=== PATIENT | female | born 1945 ===

== ENCOUNTER 2022-07-18 05:46 | Observation (INO) ==
[~2022-07-18 05:46] MED LIST: HYDROmorphone 1 MG/1 ML SYRINGE IV PRN; Naloxone 0.4 mg VIAL 0.4 mg/ml 1 ml VIAL IV PRN; Ondansetron 4 mg VIAL 2 MG/ML 2 ml VIAL IV PRN; fentaNYL 100 mcg/2 ml 50 MCG/ML VIAL IV PRN
[2022-07-18] MEDS ORDERED: Buffered Lidocaine 1% SYRIN 1 ml INTRADERM ONE (06:00)
[2022-07-18] MEDS ORDERED: Lactated Ringers 1000 ml BAG 1,000 ML IV SCH (06:00)
[2022-07-18] MEDS ORDERED: ceFAZolin 2 GM in NS PREMIX 2 GM/100 ML BAG IVPB ONE (06:06)
[2022-07-18] MEDS ORDERED: ROPIVACAINE 5 MG/ML 30 ML BTL (0.5%) ONE (07:05)
[2022-07-18] MEDS ORDERED: Dexamethasone IV 4 MG/ML VIAL 1 ml VIAL ONE ×2 (07:05→08:59)
[2022-07-18] MEDS ORDERED: Midazolam 2 mg/2 ml VIAL 1 mg/ml 2 ml VIAL (2 mg) ONE (07:05)
[2022-07-18] MEDS ORDERED: Lidocaine 2% PF 5 ML VIAL ONE (07:06)
[2022-07-18] MEDS ORDERED: fentaNYL 100 mcg/2 ml 50 MCG/ML VIAL ONE (07:15)
[2022-07-18] MEDS ORDERED: Ropivacaine 5 MG/ML 20 ML VIAL 0.5% (100 MG) ONE (07:24)
[2022-07-18] MEDS ORDERED: Ondansetron 4 mg VIAL 2 MG/ML 2 ml VIAL ONE (08:59)
[2022-07-18] MEDS ORDERED: Acetaminophen IV 1 GM/100ML 1,000 MG/100 ML BAG IV ONE (09:03)
[2022-07-18] MEDS ORDERED: Propofol 10 MG/ML 20 ML BTL ONE ×2 (09:07→09:54)
[2022-07-18] MEDS ORDERED: Magnesium Hydroxide LIQ 30 ML UDC PO PRN (10:24)
[2022-07-18] MEDS ORDERED: Ondansetron 4 mg VIAL 2 MG/ML 2 ml VIAL IV PRN (10:24)
[2022-07-18] MEDS ORDERED: Ondansetron ODT 4 mg TAB 4 MG TAB PO PRN (10:24)
[2022-07-18] MEDS ORDERED: Lactulose 30 ml UDC PO PRN (10:24)
[2022-07-18] MEDS ORDERED: Morphine 2 MG/ML SYRINGE IV PRN (10:24)
[2022-07-18] MEDS: Lactated Ringers 1000 ml BAG 1,000 ML IV SCH ×2 (12:02→23:02)
[2022-07-18] MEDS ORDERED: Dextrose 50% Syringe 50 ml 25 GM/50 ML SYRINGE IV PUSH PRN (14:32)
[2022-07-18] MEDS: ceFAZolin 1 GM ADVAN 1 GM in NS 0.9% 50 ML 50 ML IVPB SCH (15:59)
[2022-07-18] MEDS: Magnesium Hydroxide LIQ 30 ML UDC PO SCH (21:07)
[2022-07-19] MEDS: ceFAZolin 1 GM ADVAN 1 GM in NS 0.9% 50 ML 50 ML IVPB SCH ×2 (01:08→07:57)
[2022-07-19 07:00] LABS: Hematocrit 27 % (35-47); Hemoglobin 8.9 g/dL (12.0-16.0); Mean Platelet Volume 8.1 fL (7.4-10.4); Platelet Count 228 10^3/uL (150-450)
[2022-07-19 07:16] LABS: Calcium 8.3 mg/dL (8.6-10.3); Potassium 4.9 mmol/L (3.5-5.0); eGFR CKD-EPI 54.4 (>60)
[2022-07-19] MEDS: Magnesium Hydroxide LIQ 30 ML UDC PO SCH (07:59)
[2022-07-19] MEDS ORDERED: Vitamin THERAPEUTIC TAB PO SCH (09:00)
[2022-07-19] MEDS ORDERED: Cholecalciferol (VIT D3) 1,000 unit TAB PO SCH (09:00)
[2022-07-19 11:29] VITALS: BP 91/50
== END 2022-07-19 14:30 | disposition home or self-care (01) ==
LOC: AA 05:46 → INTOOBSV 05:46 → SSU 10:24
PROVIDERS: ADMIT Orthopaedic Surgery Adult Reconstructive Orthopaedic Surgery; ATTEND Orthopaedic Surgery Adult Reconstructive Orthopaedic Surgery